=== PATIENT | female | born 1960 | race Caucasian/White ===

== ENCOUNTER 2016-10-26 14:16 | Inpatient (IN) | payer BC, OTHER ==
[~2016-10-26] VITALS: Ht 165.1 cm; Wt 99.8 kg
[2016-10-26 16:00] VITALS: BP 177/115
--- NOTE | 2016-10-26 16:00 | NUR ---
ADMISSION NOTE: 56 yo female admitted with ETOH dependence. Pt is alert and oriented X 4. Pt is hyperverbal states "I can't stop talking." Color good, skin warm and dry. Respirations even and unlabored. Vital signs: B/P 177/115 P 130 RR 20 T 98.[address]ulse O[address] 95%. Dr. Hauser notified of B/P and pulse rate. Initial CIWA 14 Pt extremely anxious. Skin intact except for large bruise L breast "from falling." Pt states she "falls and passes out a lot" when drinking. Pt denies SI/HI. Pt states has PCP but refuses to give name. Drug history: ETOH: Pt states she drinks 2 pints of tequila per day for 4 years. Last drink this AM 07/17 bottle tequila Suboxone: Pt states she was on 16 mg of Suboxone per day X 1 year "to get off heroin." States stopped 10 days ago Xanax: Pt states she takes Xanax "when I can get it." Last use "few days ago" Addendum: 10/26/16 at 1813 by NARCISO CARL RN NKA 5 feet 5 inches tall and weighs 220 pounds
[2016-10-26 16:05] LABS: *AMPHETAMINE, URINE NEGATIVE (NEGATIVE); *BARBITURATE, URINE NEGATIVE (NEGATIVE); *CANNABINOID, URINE NEGATIVE (NEGATIVE); *COCCAINE, URINE NEGATIVE (NEGATIVE); *OPIATE, URINE NEGATIVE (NEGATIVE); *PHENCYCLIDINE SCREEN,URINE NEGATIVE (NEGATIVE)
[2016-10-26] MEDS ORDERED: LORAZEPAM 1 MG TABLET PO PRN ×2 (16:15)
[2016-10-26] MEDS ORDERED: DICYCLOMINE HCL 20 MG TABLET PO PRN (16:15)
[2016-10-26] MEDS ORDERED: THIAMINE HCL 200 MG/2 ML VIAL IM ONE (16:15)
[2016-10-26] MEDS ORDERED: LOPERAMIDE HCL 2 MG CAPSULE PO PRN ×2 (16:15)
[2016-10-26] MEDS ORDERED: LORAZEPAM 2 MG/1 ML VIAL IM PRN (16:15)
[2016-10-26] MEDS ORDERED: MIRALAX 17 GM POWD.PACK PO PRN (16:15)
[2016-10-26] MEDS ORDERED: ACETAMINOPHEN 325 MG TABLET PO PRN (16:15)
[2016-10-26] MEDS ORDERED: MAGNESIUM HYDROXIDE 30 ML LIQUID UDC PO PRN (16:15)
[2016-10-26] MEDS ORDERED: ONDANSETRON 4 MG/2 ML VIAL IM PRN (16:15)
[2016-10-26] MEDS ORDERED: diphenhydrAMINE 50 MG CAPSULE PO PRN (16:15)
[2016-10-26] MEDS ORDERED: ONDANSETRON ODT 4 MG TAB.RAPDIS SL PRN (16:15)
[2016-10-26] MEDS ORDERED: MAG HYDROX/AL HYDROX/SIMETH 30 ML LIQUID UDC PO PRN (16:15)
[2016-10-26] MEDS ORDERED: ALPR1TAB7 PO (16:26)
[2016-10-26] MEDS ORDERED: ASPI-866 PO (16:26)
--- NOTE | 2016-10-26 16:30 | NUR ---
Dr Hauser in to see pt. Ativan taper started. 2mg given.
--- NOTE | 2016-10-26 16:32 | NUR ---
Clonidine 0.1mg po prn given for B/P 177/115
[2016-10-26 16:39] LABS: *URINE HCG, QUAL NEGATIVE (NEGATIVE)
[2016-10-26] MEDS: LORAZEPAM 1 MG TABLET PO SCH ×3 (16:48→23:21)
[2016-10-26] MEDS: CLONIDINE HCL 0.1 MG TABLET PO PRN ×2 (16:56→23:22)
[2016-10-26 17:01] LABS: BASOPHILS % (AUTO) 0.6 % (0.0-2.0); EOSINOPHILS % (AUTO) 0.5 % (0.0-7.0); HEMOGLOBIN 15.5 g/dL (10.9-14.3); LYMPHOCYTES # (AUTO) 1.6 K/uL (40.0-85.0); LYMPHOCYTES % (AUTO) 26.8 % (20.5-51.5); MEAN CORPUSCULAR HEMOGLOBIN 30.5 uug (24.7-32.8); MEAN CORPUSCULAR HGB CONC 34 g/dL (32.3-35.6); MEAN CORPUSCULAR VOLUME 90.4 fL (75.5-95.3); MONOCYTES # (AUTO) 0.2 K/uL (2.0-10.0); MONOCYTES % (AUTO) 2.8 % (0.0-11.0); NEUTROPHILS % (AUTO) 69.3 % (38.5-71.5); PLATELET COUNT (AUTO) 294 K/uL (179-408); RED BLOOD CELL COUNT(AUTO) 5.09 MIL/uL (3.63-4.92); WHITE BLOOD COUNT (AUTO) 5.8 K/uL (3.8-11.8)
[2016-10-26 17:14] LABS: ALBUMIN 3.8 g/dL (3.4-5.0); BILIRUBIN,TOTAL 0.3 mg/dL (0.2-1.0); CALCIUM 8.8 mg/dL (8.5-10.1); CREATININE 0.9 mg/dL (0.6-1.3); MAGNESIUM 1.9 mg/dL (1.8-2.4); POTASSIUM 3.5 mmol/L (3.5-5.1); TOTAL PROTEIN, SERUM 8.2 g/dL (6.4-8.2)
--- NOTE | 2016-10-26 17:20 | NUR ---
Repeat B/P after Clonidine prn 129/86 HR 129 EKG done.
[2016-10-26 17:22] LABS: THYROID STIMULATING HORMONE 1.382 mIU/mL (0.358-3.740)
[2016-10-26 17:24] LABS: HIV-1 p24 ANTIGEN NON REACTIVE (NONREACTIVE); HIV-1/2 ANTIBODY NON REACTIVE (NONREACTIVE)
[2016-10-26 17:27] VITALS: BP 184/110
--- NOTE | 2016-10-26 17:48 | NUR ---
Vistaril 25mg po prn and Ativan 1mg po prn for severe anxiety Addendum: 10/26/16 at 1812 by NARCISO CARL RN VESNA Ambriz
[2016-10-26] MEDS: HYDROXYZINE PAMOATE 25 MG CAPSULE PO PRN (17:50)
[2016-10-26] MEDS ORDERED: hydrALAZINE HCL 50 MG TABLET PO PRN (18:00)
--- NOTE | 2016-10-26 18:46 | NUR ---
Pt states anxiety "somewhat improved" after Vistaril and Ativan prn. CIWA 10
--- NOTE | 2016-10-26 18:47 | NUR ---
END OF SHIFT NOTE: Report given to weight shifter nurse. 56 yo female admitted with ETOH dependence. Pt is alert and oriented X 4. Pt is hyperverbal states "I can't stop talking." Color good, skin warm and dry. Respirations even and unlabored. Vital signs: B/P 177/115 P 130 RR 20 T 98.4 Pulse OX 95%. Pt started on Ativan taper. Received Vistaril 25mg po prn and Ativan 1 mg po prn @ 1745. B/P has been elevated along with heart rate. Clonidine 0.1 mg po prn given @ 1700. Pt resting in room. Safety precautions observed. Call light within reach.
--- NOTE | 2016-10-26 20:00 | NUR ---
2000 Patient received awake, alert and sitting up on her bed changing television channels . Patient states, " Oh, I thought I needed help to get back to what I was watching, but it's okay now". Patient responds to nurse's greeting and introduction with , " Hi, how are you?' Patient is oriented to person, place, day, date and her personal situation. Easily reoriented to time. Patient's lung sounds are clear bilaterally and active bowel sounds are noted X 4 abdominal Quads, per auscultation. Patient denies any pain or other specific discomfort, however she states that she is having some anxiety and then she proceeds to be hyperverbal with nurse about multiple personal matters as well as voicing to nurse multiple concerns and questions regarding her ordered medications, routine as well as prn. Calm reassurances given to patient as well as honest, simple explanations within nursing scope. Patient then gave smiles and states, " Oh, I see. Okay". Vital signs are: 98.2-113-18 131/71, O2 Sat 98%, COWS 6, CIWA 5. Bilateral lower legs sleeves applied to patient's legs and then connected to turned on, leg/venous pump, per floor protocol, after explanation given to patient regarding venous pump rationale. Patient states that she isn't eating too much from her regular diet trays, however she states that she is taking fluids ad chan with no real gastric issues so far. Fall/Seizure precautions in place. Patient was admitted today, 10/26/16, for : Alcohol, Suboxone and Xanax withdrawal and she has been started on a Ativan medication taper, which she is tolerating well so far. Patient moves all her extremities fully WNL. Patient voices no requests at this time. Bed is locked and in lowest position, bed rails are up X 2 and call light within patient's easy reach.
[2016-10-26 21:00] VITALS: BP 131/71
--- NOTE | 2016-10-26 23:21 | NUR ---
PRN MEDICATION: Prn Benadryl 50 mg p.o. given per patient's request for sleep medication.
[2016-10-26] MEDS: IBUPROFEN 400 MG TABLET PO PRN (23:22)
--- NOTE | 2016-10-26 23:22 | NUR ---
PRN MEDICATIONS: Prn Catapres 0.1 mg p.o. given per patient's request for " My blood pressure and I'm really having a lot of anxiety now" and Prn Motrin 400 mg p.o. given per patient's c/o generalized body aches and pains, 6/10 pain scale.
[2016-10-26] MEDS ORDERED: diphenhydrAMINE 50 MG CAPSULE ONE (23:25)
--- NOTE | 2016-10-27 00:22 | NUR ---
REASSESSMENT PRN MEDICATIONS: Patient is sleeping comfortably with eyes closed and respirations even, quiet and unlabored at 14, B/P 131/71.
[2016-10-27 01:00] VITALS: BP 120/66
[2016-10-27 05:00] VITALS: BP 121/84
[2016-10-27] MEDS: CLONIDINE HCL 0.1 MG TABLET PO PRN ×3 (05:15→20:48)
[2016-10-27] MEDS: HYDROXYZINE PAMOATE 25 MG CAPSULE PO PRN ×2 (05:15→22:12)
--- NOTE | 2016-10-27 05:15 | NUR ---
PRN MEDICATIONS: Prn Vistaril 25 mg p.o. given for patient's c/o anxiety and Prn Catapres 0.1 mg p.o. given per patient's request for " feeling a little shakey", CIWA 4, COWS 4.
--- NOTE | 2016-10-27 06:30 | NUR ---
0630 Patient slept a total of 7 hours and she was up to the bathroom for 3 voids and no stools. Total intake was 1,535 ml p.o. Prn medications given noted separately per floor protocol . V/SS afebrile, COWS 4, CIWA 4. Patient is very anxious and hyperverbal when awake, though she is cooperative overall. Patient is presently sleeping comfortably with eyes closed and respirations even, unlabored at 14. Patient is in stable condition at this time.
[2016-10-27 08:00] VITALS: BP 105/64
--- NOTE | 2016-10-27 08:00 | NUR ---
START OF SHIFT NOTE Received report from night nurse, 56 year old female admitted on 10/26/16 for ETOH/BENZO/OPIOID dependence. NKA/regular diet, Full code. On fall precautions. pt did not report any PMH. Pt was placed on 5 days Ativan taper. Pt has bruise on her left breast skin intact to the site. Pt received PRN Motrin/ Clonidine/Benadryl/Vistaril effective per night nurse. slept for 7 hours, Last CIWA-4, COWS-4. currently pt is sleeping in her room in stable condition. no s/s of distress noted. breathing normal no SOB noted. Safety measures in place, call light within reach. Will cont to monitor.
[2016-10-27] MEDS: MULTIVITAMINS,THERAPEUTIC TABLET PO SCH (08:50)
[2016-10-27] MEDS: THIAMINE HCL 100 MG TABLET PO SCH (08:50)
[2016-10-27] MEDS: LORAZEPAM 1 MG TABLET PO SCH ×4 (08:50→20:48)
[2016-10-27] MEDS: FOLIC ACID 1 MG TABLET PO SCH (08:50)
[2016-10-27] MEDS ORDERED: TUBERCULIN,PURIF.PROT.DERIV. 5 TU/0.1 ML TEST ID ONE (09:00)
[2016-10-27 12:00] VITALS: BP 138/85
--- NOTE | 2016-10-27 13:08 | NUR ---
PRN MED Pt c/o of anxiety, sweats, non pharmacological intervention ineffective. Administered PRN Clonidine 0.1mg Po as ordered. Will cont to monitor and reassess the pt.
--- NOTE | 2016-10-27 14:08 | NUR ---
REASSESSMENT Pt reported medication effective, anxiety subside.
[2016-10-27 16:00] VITALS: BP 110/62
--- NOTE | 2016-10-27 19:11 | NUR ---
END OF SHIFT NOTE Gave report to night nurse, 56 year old female admitted on 10/26/16 for ETOH/BENZO/OPIOID dependence. NKA/regular diet, Full code. On fall precautions. pt did not report any PMH. Pt cont on 5 days Ativan taper tolerating well. During shift pt received PRN Clonidine noted effective. vital signs remained stable. Pt did not attend any groups. Educate the pt to attend groups to learn new coping skills with good verbal understanding. last CIWA-4. Vital signs remained stable. Pt's total intake 2150ml, x2 void,with x1 BM. Safety measures in place, Call light within reach. Pt endorsed to night nurse in stable condition.
[2016-10-27 20:00] VITALS: BP 110/60
--- NOTE | 2016-10-27 20:00 | NUR ---
START OF SHIFT NOTE PATIENT IN ROOM, RESTING . PATIENT REPORTS MILD ANXIETY, SWEATING AND PAIN 8/10 ON BACK AND LEGS. NOTED IRRITABLE PATIENT VERBALIZES CONCERN REGARDING HER MEDICATION AND ANSWERS QUESTIONS WITHIN NURSING SCOPE. RECEIVED REPORT FROM DAY SHIFT NURSE. PATIENT IS A 56 YEAR OLD FEMALE, ADMITTED FOR ETOH DEPENDENCE. PATIENT IS ON 2ND DAY OF HER 5 DAY ATIVAN TAPER. PATIENT IS FULL CODE, REGULAR DIET AND NO KNOWN ALLERGY. PATIENT DENIES PAST MEDICAL HISTORY. PATIENT IS ON FALL PRECAUTION. SKIN INTACT. PATIENT WAS GIVEN PRN CLONIDINE . LAST CIWA 4. SAFETY MEASURES IN PLACE. CALL LIGHT IN REACH. WILL CONTINUE TO MONITOR.
[2016-10-27] MEDS ORDERED: METHOCARBAMOL 750 MG TABLET PO ONE (20:45)
[2016-10-27] MEDS: TRAZODONE 100 MG TABLET PO PRN (20:48)
--- NOTE | 2016-10-27 20:48 | NUR ---
PRN CATAPRES,BENTYL, DESYREL AND ROBAXIN ADMINISTRATION PATIENT C/O ANXIETY, ABDOMINAL CRAMPING, GENERALIZED BODY ACHES PA-02/20 AND REQUESTS SLEEP AID. PATIENT WAS GIVEN CATAPRES, BENTYL , DESYREL AND ROBAXIN . WILL MONITOR FOR EFFECTIVENESS. RELAXATION TECHNIQUE PROVIDED.
[2016-10-27] MEDS ORDERED: METHOCARBAMOL 750 MG TABLET ONE (20:50)
--- NOTE | 2016-10-27 21:48 | NUR ---
PRN BENTYL RE-ASSESSMENT PATIENT STATES ABDOMINAL CRAMPING SUBSIDED. BENTYL HELPFUL AND EFFECTIVE. WILL CONTINUE TO MONITOR.
--- NOTE | 2016-10-27 21:48 | NUR ---
LUCASN JANELL DAVIS PATIENT STATES MEDS IS SLIGHTLY EFFECTIVE. PATIENT STATES SHE WILL TRY TO GO TO SLEEP. REDIRECTION PROVIDED.
[2016-10-27] MEDS: IBUPROFEN 400 MG TABLET PO PRN (22:11)
--- NOTE | 2016-10-27 22:11 | NUR ---
PRN CATAPRES/ROBAXIN RE-ASSESSMENT PATIENT STILL C/O ANXIETY AND GENERALIZED BODY ACHES. 02/20 . CATAPRES AND ROBAXIN INEFFECTIVE.
--- NOTE | 2016-10-27 22:11 | NUR ---
PRN MOTRIN/VISTARIL ADMINISTRATION PATIENT STATES STILL ANXIOUS, UNABLE TO SLEEP AND WITH GENERALIZED BODY PAIN 02/20. PRN MOTRIN AND VISTARIL RE-ASSESSMENT. MOTRIN AND VISTARIL GIVEN. WILL CONTINUE TO MONITOR
--- NOTE | 2016-10-27 23:11 | NUR ---
PRN MOTRIN/VISTARIL PATIENT STATES MOTRIN SLIGHTLY EFFECTIVE. VISTARIL INEFFECTIVE. STILL UNABLE TO SLEEP. CONTINUE TO REDIRECT. RELAXATION TECHNIQUE PROVIDED. WILL CONTINUE TO MONITOR,
[2016-10-28] VITALS: BP 130/76
[2016-10-28] MEDS ORDERED: LORAZEPAM 1 MG TABLET PO ONE ×2 (00:30→10:45)
[2016-10-28] MEDS ORDERED: diphenhydrAMINE 50 MG CAPSULE PO ONE (00:30)
--- NOTE | 2016-10-28 00:30 | NUR ---
PRN ATIVAN/BENADRYL PATIENT C/O ANXIETY, NOTED RESTLESS, IRRITABLE , AGITATED AND STILL C/O UNABLE TO SLEEP. CIWA 9. VS 130/76 P-76 R-16 T-97.8. PRN ATIVAN/BENADRYL GIVEN. WILL MONITOR FOR EFFECTIVENESS
[2016-10-28] MEDS ORDERED: LORAZEPAM 1 MG TABLET ONE (00:37)
[2016-10-28] MEDS ORDERED: diphenhydrAMINE 50 MG CAPSULE ONE (00:37)
--- NOTE | 2016-10-28 01:30 | NUR ---
PRN ATIVAN /BENADRYL RE-ASSESSMENT PATIENT STATES ATIVAN IS SLIGHTLY EFFECTIVE. STILL ANXIOUS AND BENADRYL INEFFECTIVE. STILL UNABLE TO SLEEP. CONTINUE TO REDIRECT. CIWA 7.
[2016-10-28] MEDS: CLONIDINE HCL 0.1 MG TABLET PO PRN ×2 (03:57→10:05)
--- NOTE | 2016-10-28 03:57 | NUR ---
PRN CLONIDINE ADMINISTRATION PATIENT STILL C/O ANXIETY AND UNABLE TO SLEEP. RELAXATION TECHNIQUE PROVIDED. NON-PHARMACOLOGICAL INTERVENTION INEFFECTIVE. PRN CLONIDINE GIVEN. WILL MONITOR FOR EFFECTIVENESS.
[2016-10-28 04:00] VITALS: BP 118/84
--- NOTE | 2016-10-28 04:57 | NUR ---
PRN CLONIDINE RE-ASSESSMENT PATIENT STATES CLONIDINE INEFFECTIVE. PATIENT STILL CONTINUE'S TO ASK FOR MEDICATION. CONTINUE TO REDIRECT. RELAXATION TECHNIQUE PROVIDED.
--- NOTE | 2016-10-28 06:41 | NUR ---
ONE TIME BACLOFEN AND TORADOL INJECTION ADMINISTRATION DR. CELIS WAS INFORMED OF PATIENT STILL C/O PAIN ON BACK AND BOTH LEGS 02/20. PRN BACLOFEN AND TORADOL GIVEN. WILL MONITOR FOR EFFECTIVENESS.
[2016-10-28] MEDS ORDERED: KETOROLAC TROMETHAMINE 30 MG INJ ONE (06:44)
[2016-10-28] MEDS ORDERED: BACLOFEN 20 MG TABLET ONE (06:44)
[2016-10-28] MEDS ORDERED: BACLOFEN 20 MG TABLET PO ONE ×2 (06:45→10:45)
[2016-10-28] MEDS ORDERED: KETOROLAC TROMETHAMINE 30 MG INJ IM ONE (06:45)
--- NOTE | 2016-10-28 07:17 | NUR ---
MARYURI PEDROZAYREL RE-ASSESSMENT PATIENT STATES DESYREL INEFFECTIVE. PATIENT STATES SHE STILL CAN'T STAY ASLEEP . WILL CONTINUE TO MONITOR AND WILL WILL NOTIFY
--- NOTE | 2016-10-28 07:34 | NUR ---
END OF SHIFT NOTE PATIENT REPORTS ANXIETY, SWEATING , ABDOMINAL CRAMPING, UNABLE TO SLEEP AND PAIN 8/10 ON BACK/ LEGS DURING SHIFT, PATIENT VERBALIZING FEELING UNCOMFORTABLE. PATIENT VERBALIZES CONCERN REGARDING HER MEDICATION AND ANSWERS QUESTIONS WITHIN NURSING SCOPE. PATIENT WAS GIVEN BENTYL FOR ABDOMINAL CRAMPING, CATAPRES , DESYREL AND ONE TIME ROBAXIN AT 2047 THEN AT 2210 , PATIENT C/O ANXIETY AND GENERALIZED BODY ACHES , PRN MOTRIN AND VISTARIL GIVEN. DR. SHIELDS WAS CALLED AND INFORMED OF PATIENT STILL ANXIOUS AND UNABLE TO STAY ASLEEP, PREVIOUS MEDS SLIGHTLY EFFECTIVE. ONE TIME BENADRYL AND ATIVAN WAS GIVEN AT 0030. THEN AT 356, PATIENT STILL ANXIOUS AND WAS GIVEN CLONIDINE . ENDORSE TO DAY SHIFT NURSE PATIENT'S COMPLAINTS OF VARIOUS SYMPTOMS TO MD AND STATES MEDS ARE SLIGHTLY EFFECTIVE AND SOME ARE INEFFECTIVE. PATIENT STILL CONTINUES TO ASK FOR MEDICATIONS . SAFETY MEASURES IN PLACE. CALL LIGHT IN REACH. WILL CONTINUE TO MONITOR. SLEPT 4 HOURS. FLUID INTAKE 795 ML. VOIDED X 1. NO BM. LAST COWS 6 AND CIWA 5.
--- NOTE | 2016-10-28 07:41 | NUR ---
REASSESSMENT Upon reassessment pt reported medications effective which was given by night nurse. Pain level lower to 5/10, muscle spasms decreased. Will cont to monitor.
[2016-10-28 07:51] LABS: BASOPHILS % (AUTO) 0.5 % (0.0-2.0); EOSINOPHILS # (AUTO) 0.2 K/uL (0.0-0.7); EOSINOPHILS % (AUTO) 2.3 % (0.0-7.0); LYMPHOCYTES # (AUTO) 1.7 K/uL (40.0-85.0); MEAN CORPUSCULAR HGB CONC 34 g/dL (32.3-35.6); MEAN CORPUSCULAR VOLUME 91.1 fL (75.5-95.3); MONOCYTES # (AUTO) 0.4 K/uL (2.0-10.0); MONOCYTES % (AUTO) 4.8 % (0.0-11.0); NEUTROPHILS # (AUTO) 5.2 K/uL (1.8-8.9); NEUTROPHILS % (AUTO) 69.4 % (38.5-71.5); RED BLOOD CELL COUNT(AUTO) 4.18 MIL/uL (3.63-4.92)
[2016-10-28 08:00] VITALS: BP 102/64
--- NOTE | 2016-10-28 08:00 | NUR ---
START OF SHIFT NOTE Received report from night nurse, 56 year old female admitted on 10/26/16 for ETOH/BENZO/OPIOID dependence. NKA/regular diet, Full code. On fall precautions. pt did not report any PMH. Pt cont on 5 days Ativan taper. Pt has bruise on her left breast skin intact to the site. Pt received PRN's medications slightly effective per night nurse, slept for 4 hours, Last CIWA-5, COWS-6. Currently pt is resting in his room no s/s of distress noted. breathing normal no SOB noted. Safety measures in place, call light within reach. Will cont to monitor.
[2016-10-28 08:03] LABS: HEMATOCRIT 38.1 % (31.2-41.9); PLATELET COUNT (AUTO) 188 K/uL (179-408); WHITE BLOOD COUNT (AUTO) 7.5 K/uL (3.8-11.8)
[2016-10-28 08:27] LABS: ALBUMIN 2.8 g/dL (3.4-5.0); BILIRUBIN,DIRECT 0.1 mg/dL (0.0-0.2); BILIRUBIN,TOTAL 0.4 mg/dL (0.2-1.0); CALCIUM 8.7 mg/dL (8.5-10.1); CREATININE 0.7 mg/dL (0.6-1.3); MAGNESIUM 1.8 mg/dL (1.8-2.4); PHOSPHOROUS 3.8 mg/dL (2.5-4.9); POTASSIUM 4.2 mmol/L (3.5-5.1); TOTAL PROTEIN, SERUM 6.4 g/dL (6.4-8.2)
[2016-10-28] MEDS: FOLIC ACID 1 MG TABLET PO SCH (09:25)
[2016-10-28] MEDS: LORAZEPAM 1 MG TABLET PO SCH ×3 (09:25→21:34)
[2016-10-28] MEDS: ASPIRIN 81 MG TAB.CHEW PO SCH (09:25)
[2016-10-28] MEDS: MULTIVITAMINS,THERAPEUTIC TABLET PO SCH (09:25)
[2016-10-28] MEDS: THIAMINE HCL 100 MG TABLET PO SCH (09:25)
--- NOTE | 2016-10-28 10:05 | NUR ---
PRN MED Pt c/o of anxiety, sweats, non pharmacological intervention ineffective. Administered PRN Clonidine 0.1mg Po as ordered. Will cont to monitor and reassess the pt.
[2016-10-28] MEDS ORDERED: KETOROLAC TROMETHAMINE 30 MG INJ IM PRN (10:45)
--- NOTE | 2016-10-28 11:05 | NUR ---
REASSESSMENT Pt reported medication effective, anxiety subside.
--- NOTE | 2016-10-28 11:12 | NUR ---
NEW ORDER Pt is complaining of muscle spasms/ anxiety, agitation. MD ordered Baclofen 20mg one time order and Ativan 2mg one time order. Orders entered by MD. orders carried out and given. Will continue to monitor pt.
[2016-10-28 12:00] VITALS: BP 107/64
[2016-10-28] MEDS: GABAPENTIN 300 MG CAPSULE PO SCH ×2 (13:18→16:29)
[2016-10-28] MEDS: BACLOFEN 20 MG TABLET PO SCH ×2 (15:03→21:35)
[2016-10-28 16:00] VITALS: BP 115/66
--- NOTE | 2016-10-28 19:10 | NUR ---
END OF SHIFT NOTE Gave report to night nurse, 56 year old female admitted on 10/26/16 for ETOH/BENZO/OPIOID dependence. NKA/regular diet, Full code. On fall precautions. pt did not report any PMH. Pt cont on 5 days Ativan taper tolerating well. During shift pt received PRN's medications effective. Pt did not attend any groups. Educate the pt to attend groups to learn new coping skills with good verbal understanding. last CIWA-3. Vital signs remained stable. Pt did not take shower offered and pt refused. Pt's total intake 1000ml, x1 void,with x0 BM. Safety measures in place, Call light within reach. Pt endorsed to night nurse in stable condition.
--- NOTE | 2016-10-28 19:50 | NUR ---
START OF SHIFT NOTE Received report from day shift nurse. Pt is 56 y o female, admitted on for ETOH (tequila), Suboxone, Xanax (occasionally) dependence. Pt is on 5 day Ativan taper started 10/25/16. Pt in room ,asleep, awakened by verbal stimuli. Reports anxiety and back pain /, scheduled medications to be administered as ordered. RR unlabored, heart rate regular. Pt denies n/v/d, bowel sounds active x 4. Skin intact, with minimal sweating observed. No tremors noted. Pt is on fall precautions. Side rails up x 2, call light within reach, bed locked in lowest position.
[2016-10-28 20:00] VITALS: BP 100/52
[2016-10-29] VITALS: BP 106/61
--- NOTE | 2016-10-29 | NUR ---
CIWA/COWS DEFERRED COWS/CIWA assessment deferred per MD order; pt sleeping soundly, fall precautions in place, will continue to monitor Addendum: 10/29/16 at 0342 by KAILEY LI RN Amended: Links added.
[2016-10-29 04:00] VITALS: BP 106/66
--- NOTE | 2016-10-29 04:00 | NUR ---
CIWA/COWS DEFERRED COWS/CIWA assessment deferred per MD order; pt sleeping soundly, fall precautions in place, will continue to monitor Addendum: 10/29/16 at 0434 by KAILEY LI RN Amended: Links added.
[2016-10-29 04:06] LABS: HCV AB <0.1 s/co ratio (0.0-0.9); HEPATITIS B CORE AB, IgM Negative (Negative); HEPATITIS B SURFACE AG Negative (Negative)
[2016-10-29] MEDS: HYDROXYZINE PAMOATE 25 MG CAPSULE PO PRN ×2 (05:04→08:47)
--- NOTE | 2016-10-29 05:07 | NUR ---
PRN VISTARIL Pt woke up, c/o anxiety. BP 107/59, HR 75. Administered Vistaril 50 mg PO prn. Fall precautions in place, will continue to monitor
[2016-10-29 07:21] LABS: ALBUMIN 3.1 g/dL (3.4-5.0); BILIRUBIN,DIRECT 0.1 mg/dL (0.0-0.2); BILIRUBIN,TOTAL 0.5 mg/dL (0.2-1.0); CALCIUM 8.8 mg/dL (8.5-10.1); CREATININE 0.9 mg/dL (0.6-1.3); MAGNESIUM 2.2 mg/dL (1.8-2.4); PHOSPHOROUS 3.6 mg/dL (2.5-4.9); POTASSIUM 4.5 mmol/L (3.5-5.1); TOTAL PROTEIN, SERUM 7.1 g/dL (6.4-8.2)
--- NOTE | 2016-10-29 07:21 | NUR ---
Start of Shift Notes: Received patient in the room. Alert and oriented x 4. Verbally responsive. Able to make her needs known. Respirations even and unlabored. No SOB noted. Skin warm and dry to touch. Abdomen soft and non-distended with (+) BS in all 4 quadrants. No complains of N/V/D or constipation noted. No complains of abdominal discomfort. Voids independently. Denies any complains of bladder pain. Ambulatory ad chan with steady gait. Patient is a 56 year old female admitted for ETOH/Subaxone and BZO dependence who was placed on a 5-day Ativan taper as ordered. No adverse reactions noted. Denies any past medical hx. FULL CODE. NKA. Regular diet. On fall and seizure precautions. Educated patient on her current plan of care for the day and her medication regimen. Encouraged oral fluid intake and encouraged group participation to learn new skills to prevent relapse. Will continue to monitor closely. Safety precautions in place.
--- NOTE | 2016-10-29 07:25 | NUR ---
END OF SHIFT NOTE Pt is 56 y o female, admitted on 10/26/16 for ETOH (tequila), Suboxone, Xanax (occasionally) dependence. Pt is on day 3 of 5 day Ativan taper started 10/27/16. Pt was cooperative and compliant throughout the shift. P slept for 9 hrs, woke up at 0500 d/t anxiety, was administered prn Vistaril 50 mg PO as ordered. Pt verbalized relief from anxiety at 0600. Last CIWA 3, COWS 3 at 1999. VSS. Pt on fall precautions. Report endorsed to day shift nurse.
[2016-10-29 08:00] VITALS: BP 112/67
[2016-10-29] MEDS: ASPIRIN 81 MG TAB.CHEW PO SCH (08:47)
[2016-10-29] MEDS: FOLIC ACID 1 MG TABLET PO SCH (08:47)
[2016-10-29] MEDS: MULTIVITAMINS,THERAPEUTIC TABLET PO SCH (08:47)
[2016-10-29] MEDS: BACLOFEN 20 MG TABLET PO SCH ×3 (08:47→20:59)
[2016-10-29] MEDS: LORAZEPAM 1 MG TABLET PO SCH ×4 (08:47→21:00)
[2016-10-29] MEDS: CLONIDINE HCL 0.1 MG TABLET PO PRN (08:48)
[2016-10-29] MEDS: GABAPENTIN 300 MG CAPSULE PO SCH ×4 (08:48→20:59)
[2016-10-29] MEDS: THIAMINE HCL 100 MG TABLET PO SCH (08:48)
--- NOTE | 2016-10-29 08:50 | NUR ---
Clonidine 0.1mg/Vistaril 50 mg/Ibuprofen 400mg: Patient noted with complain with chills, hot flashes, sweats, increased anxiety as well as headache 5/10 with muscle aches and pains. Noted patient with increased agitation and becoming disrespectful with staff, being overly demanding. Patient was redirected and approached in a calm and professional manner. Medicated patient with the above meds as ordered. Will monitor for effectiveness.
--- NOTE | 2016-10-29 09:50 | NUR ---
Re-assessment: Per patient, PRN Clonidine, Vistaril and Motrin were effective in reducing chills, hot flashes, anxiety and muscle aches and pains and headache. PL 2/10.
--- NOTE | 2016-10-29 11:18 | NUR ---
New orders: New orders received from Dr. Hauser for patient to be started on a modified 3-day Subutex taper starting today, increase Gabapentin to 600 mg to QID and Clonidine as scheduled. Orders noted and carried out. Patient education provided. Verbalized understanding. Requires reinforcement and redirection.
[2016-10-29] MEDS ORDERED: CLONIDINE HCL 0.1 MG TABLET PO PRN (11:45)
[2016-10-29 12:00] VITALS: BP 117/79
[2016-10-29] MEDS: BUPRENORPHINE HCL 2 MG TAB.SUBL SL SCH ×3 (12:11→21:01)
[2016-10-29] MEDS: CLONIDINE HCL 0.1 MG TABLET PO SCH ×2 (15:49→21:00)
[2016-10-29 16:00] VITALS: BP 117/73
--- NOTE | 2016-10-29 18:41 | NUR ---
Psych MD Visit: Patient was seen and examined by Dr. Mckinley and made started patient on Seroquel and Depakote. Patient education provided. Verbalized good understanding.
--- NOTE | 2016-10-29 19:09 | NUR ---
End of Shift Notes: Patient is a 56 year old female admitted for ETOH dependence who was placed on oa 5-day Ativan taper as ordered that was started on 10/25/2016. 3-day Subutex ordered and started today at 1300. No adverse reactions noted. Prior to admission, patient was using 2 pints of Tequila, 16 mg of Subaxone. VS monitored closely q 4 hours. No significant abnormalities noted. Withdrawal symptoms were closely monitored. Patient presented with increased anxiety, agitation, restless legs, muscle aches and pains, chills, hot flashes and sweats. Initial COWS 9, CIWA 11. Medicated patient with Clonidine, VIstaril and Motrin at 0850 with help after 1 hour. Last COWS 5 / CIWA 4. Patient appears to demand for more and more medication despite educating patient on the medication regimen. Also noted with episodes of being disrespectful and inappropriate to staff when she does not get what she demands. Multiple changes were made to the patients medication regimen by MD Hauser such as Gabapentin, Clonidine and started on 3-day Subutex taper. Requires constant reassurance and redirection. Encouraged to participate in group but non-compliant. Oral fluids encouraged as ordered. All needs met and attended. On fall and seizure precautions. Safety precautions in place. Will continue to monitor closely.
--- NOTE | 2016-10-29 19:55 | NUR ---
START OF SHIFT NOTE Received report from day shift nurse. Pt is 56 y o female, admitted on 10/26/16 for ETOH (tequila), Suboxone, Xanax (occasionally) dependence. Pt is on 5 day Ativan taper started 10/27/16. Pt was placed on 3 day Subutex taper on 10/29/16. Pt in room, asleep, awakened by verbal stimuli. Reports anxiety, sweats, and generalized aches 10/21. No tremors noted. Lung sounds clear, RR unlabored, heart rate regular. Pt denies n/v/d, bowel sounds active x 4. Pt is on fall precautions. VTE risk 2, SCD boots on. Side rails up x 2, call light within reach, bed locked in lowest position. Will continue with plan of care
[2016-10-29 20:00] VITALS: BP 123/78
[2016-10-29] MEDS: DIVALPROEX 250 MG TABLET.DR PO SCH (21:00)
[2016-10-30] VITALS: BP 88/53
--- NOTE | 2016-10-30 | NUR ---
CIWA/COWS DEFERRED COWS/CIWA assessment deferred per MD order; pt sleeping soundly, fall precautions in place, will continue to monitor
[2016-10-30 04:00] VITALS: BP 90/45
--- NOTE | 2016-10-30 04:00 | NUR ---
CIWA/COWS DEFERRED COWS/CIWA assessment deferred per MD order; pt sleeping soundly, fall precautions in place, will continue to monitor Addendum: 10/30/16 at 0632 by KAILEY LI RN Amended: Links added.
--- NOTE | 2016-10-30 07:12 | NUR ---
END OF SHIFT NOTE Pt is 56 y o female, admitted on 10/26/16 for ETOH (tequila), Suboxone, Xanax (occasionally) dependence. Pt is on day 4 of 5 day Ativan taper started 10/27/16, and on day 2 of 3 day Subutex taper started 10/29/16. PMH of bipolar. Pt demonstrated cooperative behavior throughout the shift, was compliant. Last COWS 4, CIWA 4 at 2000, VSS. P slept for 9 hrs. Pt received all scheduled medications, no prns were given. Pt on fall precautions. Report endorsed to day shift nurse.
--- NOTE | 2016-10-30 07:30 | NUR ---
START OF SHIFT NOTE Received report from night nurse, 56 year old female admitted on 10/26/16 for ETOH/BENZO/OPIOID dependence. NKA/regular diet, Full code. On fall precautions. pt did not report any PMH. Pt cont on 5 days Ativan taper and 3 days Subutex taper started 10/29/16. Pt has bruise on her left breast skin intact to the site. Pt received PRN's medications slightly effective per night nurse, slept for 9 hours, Last CIWA-4, COWS-4. pt received pt alert awake oriented x4, in her room no s/s of distress noted. Breathing normal no SOB noted. Educate the pt regarding plan of the day and medication regimen. Safety measures in place, call light within reach. Will cont with plan of care.
[2016-10-30 08:00] VITALS: BP 108/66
[2016-10-30] MEDS: ASPIRIN 81 MG TAB.CHEW PO SCH (08:57)
[2016-10-30] MEDS: MULTIVITAMINS,THERAPEUTIC TABLET PO SCH (08:57)
[2016-10-30] MEDS: THIAMINE HCL 100 MG TABLET PO SCH (08:57)
[2016-10-30] MEDS: BUPRENORPHINE HCL 2 MG TAB.SUBL SL SCH ×3 (08:57→21:24)
[2016-10-30] MEDS: BACLOFEN 20 MG TABLET PO SCH ×3 (08:57→21:24)
[2016-10-30] MEDS: CLONIDINE HCL 0.1 MG TABLET PO SCH ×3 (08:57→21:23)
[2016-10-30] MEDS: FOLIC ACID 1 MG TABLET PO SCH (08:57)
[2016-10-30] MEDS: LORAZEPAM 1 MG TABLET PO SCH ×3 (08:57→21:24)
[2016-10-30] MEDS: GABAPENTIN 300 MG CAPSULE PO SCH ×4 (08:57→21:24)
[2016-10-30] MEDS: DIVALPROEX 250 MG TABLET.DR PO SCH ×2 (09:02→21:24)
[2016-10-30 12:00] VITALS: BP 112/70
[2016-10-30 16:00] VITALS: BP 134/91
--- NOTE | 2016-10-30 19:21 | NUR ---
END OF SHIFT NOTE Gave report to night nurse, 56 year old female admitted on 10/26/16 for ETOH/BENZO/OPIOID dependence. NKA/regular diet, Full code. On fall precautions. Pt did not report any PMH. Pt cont on 5 days Ativan taper/3days Subutex taper tolerating well. Pt attended groups and activities. Last CIWA-3, COWS-3. Vital signs remained stable. Pt's total intake 1123ml, x3 void,with x0 BM. Safety measures in place, Call light within reach. Pt endorsed to night nurse in stable condition.
[2016-10-30 20:00] VITALS: BP 144/85
--- NOTE | 2016-10-30 20:00 | NUR ---
Start of Shift Note: Report received from day shift nurse. Pt is a 56 yo female admitted on 10/26/16 for medically-supervised withdrawal from ETOH, Suboxone, and benzodiazepines. Pt reports drinking 2 pints tequila daily for 4 years, taking 16mg Suboxone daily for one year, and an unknown amount of Xanax for 1 year. Pt is on the fourth day of a 5-day Ativan taper and on the second day of a modified 3-day Subutex taper. Last day shift COWS=3, CIWA=3. Pt is on a regular diet. Pt reports NKDA/NKFA. Pt denies past med hx. Pt received in room, noted to be hyperverbal with tangential speech. Pt noted with tremor. Pt reports conflicts with staff members and c/o rules regarding group attendance for cigarette distribution. Pt redirected multiple times to stay on topic, will continue to educate. All safety precautions are in place. Will continue to monitor.
[2016-10-30] MEDS: TRAZODONE 100 MG TABLET PO PRN (21:24)
--- NOTE | 2016-10-30 21:31 | NUR ---
PRN Trazodone: Pt complains of inability to sleep. Non-pharmacological measures not effective. Administered PRN Trazodone as ordered. Will continue to monitor.
--- NOTE | 2016-10-30 22:35 | NUR ---
PRN Reassessment: Pt is in bed with eyes closed. Respirations are even and unlabored. No s/s of acute distress noted. PRN Trazodone effective AEB pt's ability to rest. Will continue to monitor.
[2016-10-31] VITALS: BP 128/78
--- NOTE | 2016-10-31 | NUR ---
COWS/CIWA Deferred: COWS/CIWA assessments are deferred for sleep. VS: 98.2, 84, 16, 96%, 128/78. All safety precautions are in place. Will continue to monitor. Addendum: 10/31/16 at 0321 by SUSANNA DOBBS RN Amended: Links added.
[2016-10-31 04:00] VITALS: BP 131/82
--- NOTE | 2016-10-31 04:00 | NUR ---
COWS/CIWA Deferred: COWS and CIWA deferred while pt is sleeping. VS WNL. All safety precautions are in place. Will continue to monitor. Addendum: 10/31/16 at 0639 by SUSANNA DOBBS RN Amended: Links added.
--- NOTE | 2016-10-31 05:07 | NUR ---
Behavioral Note: Pt reports sleeping in an awkward position, and reports waking up with severe muscle cramps. Pt refuses Motrin at this time. Pt is hyperverbal, fidgety, labile and crying upon assessment, states that she does not like taking psychiatric medications and has many concerns regarding her medication regime and medication side effects. Pt requires frequent redirection to stay on topic. Pt noted to be fearful, agitated and speaking in loud tones. Pt reports not trusting psychiatrists and does not like taking psychiatric medications. Provided pt teaching on weighing the risks and benefits of the new Depakote and Seroquel, but pt continues to verbalize her suspicions and fears. Pt states, "I can just deal with the agitation. I did it before." Educated pt on the effect of emotional imbalance on relapse and sobriety. Pt will require ongoing education on the topic.
[2016-10-31 07:08] LABS: *BENZODIAZEPINES Negative (Cutoff=300)
--- NOTE | 2016-10-31 07:13 | NUR ---
End of Shift Note: Pt is a 56 yo female admitted to [facility] on 10/26/16 for medically-supervised withdrawal from ETOH, Suboxone, and benzodiazepines. Pt denies past med hx. Pt is on a regular diet. Pt reports NKDA/NKFA. Pt reports drinking 2 pints tequila daily for 4 years, taking 16mg Suboxone daily for one year, and an unknown amount of Xanax for 1 year. Pt is to start the fifth day of a 5-day Ativan taper and the third day of a modified 3-day Subutex taper. Scheduled medication regime effectively managed s/s of withdrawal this shift. PRN Trazodone was given for inability to sleep. Pt required repeated redirection and support for extended periods of time d/t episodes of anxiety and agitation. Last COWS=11, CIWA=7 at 20:00. V/S stable throughout shift, with one HR elevated at 107. Pt reporting increase in myoclonus, endorsed to day shift nurse for MD medication adjustment. Total fluid intake this shift: 850 ml; output: urine x 2 and BM x 0. Pt currently in bed and slept 7 hours this shift. Pt endorsed to day shift nurse.
--- NOTE | 2016-10-31 07:51 | NUR ---
START OF SHIFT NOTE: Received pt this morning in her room. Pt continues on 5 day Ativan/3 day Subutex taper. Pt given PRN Trazodone per shift supervisor rn and slept 7 hours. She says her body is hurting because she woke up in a weird position this morning and it really worried her. Patient reports she is feeling restless, anxious, has leg cramps and body aches. She states she wants to speak to the psychiatrist today regarding some of her medications. All safety measures in place. Will continue to monitor and provide safe and supportive environment.
[2016-10-31 08:00] VITALS: BP 154/76
[2016-10-31] MEDS: FOLIC ACID 1 MG TABLET PO SCH (08:44)
[2016-10-31] MEDS: MULTIVITAMINS,THERAPEUTIC TABLET PO SCH (08:44)
[2016-10-31] MEDS: CLONIDINE HCL 0.1 MG TABLET PO SCH ×3 (08:44→20:54)
[2016-10-31] MEDS: GABAPENTIN 300 MG CAPSULE PO SCH ×3 (08:44→20:55)
[2016-10-31] MEDS: BACLOFEN 10 MG TABLET PO SCH ×3 (08:44→20:55)
[2016-10-31] MEDS: ASPIRIN 81 MG TAB.CHEW PO SCH (08:44)
[2016-10-31] MEDS: THIAMINE HCL 100 MG TABLET PO SCH (08:44)
[2016-10-31] MEDS: DIVALPROEX 250 MG TABLET.DR PO SCH ×2 (08:44→20:55)
[2016-10-31] MEDS ORDERED: BACLOFEN 20 MG TABLET PO SCH (09:00)
[2016-10-31] MEDS ORDERED: LORAZEPAM 1 MG TABLET PO SCH ×2 (09:00→18:00)
[2016-10-31] MEDS ORDERED: BUPRENORPHINE HCL 2 MG TAB.SUBL SL SCH ×2 (09:00→18:00)
[2016-10-31] MEDS: QUETIAPINE FUMARATE 25 MG TABLET PO PRN ×2 (11:44→20:56)
--- NOTE | 2016-10-31 11:46 | NUR ---
PRN MEDS PRN Seroquel given per Dr. Flores order. Pt is labile and agitated. Will reassess
[2016-10-31 12:00] VITALS: BP 151/80
--- NOTE | 2016-10-31 12:45 | NUR ---
PRN REASSESSMENT Pt is less agitated.Pt laying in bed watching tv with bed locked and in lowest position call bernardo within reach. Will continue to monitor
[2016-10-31 16:00] VITALS: BP 122/84
--- NOTE | 2016-10-31 18:41 | NUR ---
END OF SHIFT Pt continues on 5 day Ativan 3 day Subutex taper. Pt tolerating taper well. Pt is scheduled for discharge tomorrow. Pt given PRN Seroquel for agitation and labile mood with effectiveness. Pt attended groups today. Last COWS 4 CIWA 7. Pt presents restless and anxious. Pt is compliant with medications and tx plan. Pt is hyper-focused on medications. All needs attended to promptly. Bed locked and in lowest position and call bernardo within reach. Will pass report to oncoming nurse
--- NOTE | 2016-10-31 19:15 | NUR ---
START OF SHIFT Received 56 year old female patient admitted on 10/26/16 for Xanax, ETOH, and Suboxone dependency. Pt is full code with NKA. She denies any PMHx. She reports using ETOH 2 pints of tequila daily for 4 years. Last dose 1/4 pint on 10/26/16. Xanax of unknown dose. Last taken " few days ago." and Suboxone 16 mg daily for 1 year. Last dose was 10 days ago. Pt was placed on modified 3 day Subutex taper started on 10/29/16 and tolerating well. Per endorsement, pt received PRN Seroquel. Pt is scheduled to be DC tomorrow. Pt is alert and oriented x4, breathing is even and unlabored, safety measures in place. Will continue to monitor.
[2016-10-31] MEDS ORDERED: DICY20TA28 PO (19:32)
[2016-10-31] MEDS ORDERED: QUET25TA PO (19:32)
[2016-10-31] MEDS ORDERED: HYDR-3895 PO (19:32)
[2016-10-31] MEDS ORDERED: Ibuprofen PO (19:32)
[2016-10-31] MEDS ORDERED: CLON0.1T14 PO (19:32)
[2016-10-31] MEDS ORDERED: DIVA250T4 PO (19:32)
[2016-10-31] MEDS ORDERED: Baclofen PO (19:32)
[2016-10-31] MEDS ORDERED: Trazodone Hcl PO (19:32)
[2016-10-31] MEDS ORDERED: Gabapentin PO (19:32)
[2016-10-31 20:00] VITALS: BP 128/74
--- NOTE | 2016-10-31 20:56 | NUR ---
PRN SEROQUEL Pt observed to be agitated/anxious. Pt is restless in room, unable to sit still. PRN Seroquel administered as ordered. Breathing even and unlabore, safety measures in place. Will continue to monitor effectiveness.
[2016-10-31 21:34] LABS: *AMPHETAMINE, URINE NEGATIVE (NEGATIVE); *BARBITURATE, URINE NEGATIVE (NEGATIVE); *CANNABINOID, URINE NEGATIVE (NEGATIVE); *COCCAINE, URINE NEGATIVE (NEGATIVE); *OPIATE, URINE NEGATIVE (NEGATIVE); *PHENCYCLIDINE SCREEN,URINE NEGATIVE (NEGATIVE)
--- NOTE | 2016-10-31 21:56 | NUR ---
PRN SEROQUEL REASSESSMENT PRN medication effective. Pt observed to be more calm, sitting comfortably in bed. Pt states " I feel a lot better" Breathing even and unlabored, respirations 16. Safety measures in place. Will continue to monitor.
[2016-11-01] VITALS: BP 121/88
[2016-11-01] MEDS: TRAZODONE 100 MG TABLET PO PRN (00:13)
--- NOTE | 2016-11-01 00:13 | NUR ---
PRN TRAZODONE Pt complains of inability to fall asleep. PRN Trazodone administered as ordered. Breathing even and unlabored, safety measures in place. Will continue to monitor effectiveness.
--- NOTE | 2016-11-01 01:13 | NUR ---
PRN TRAZODONE REASSESSMENT PRN Trazodone effective. Pt lying in bed with eyes closed noted with eyes closed and is asleep. Respirations 16, breathing is even and unlabored. Pt safe with bed locked in lowest position, side rails up x2 and call light within reach. Will continue to monitor.
[2016-11-01 04:00] VITALS: BP 103/64
--- NOTE | 2016-11-01 04:00 | NUR ---
COWS/CIWA DEFERRED COWS/CIWA deferred d/t order is Q4H while awake. Pt lying in bed with eyes closed noted to be asleep. Respirations 16, breathing is even and unlabored. Pt safe with bed locked in lowest position, side rails up x2 and call light within reach. Will continue to monitor.
[2016-11-01] MEDS: QUETIAPINE FUMARATE 25 MG TABLET PO PRN ×3 (06:47→20:53)
--- NOTE | 2016-11-01 06:49 | NUR ---
PRN SEROQUEL Pt observed to be agitated. Pt awake in room and is restless. PRN Seroquel administered as ordered. Breathing even and unlabored, safety measures in place. Will endorse to monitor effectiveness.
--- NOTE | 2016-11-01 07:07 | NUR ---
END OF SHIFT Pt is a 56 year old female patient admitted on 10/26/16 for Xanax, ETOH, and Suboxone dependency. Pt is full code with NKA. She denies any PMHx. At 6 pt received PRN Seroquel d/t agitation/anxiety. And at 12 pt received PRN Trazodone d/t inability to sleep. Both PRN medications were effective. At 646 pt received PRN Seroquel d/t agitation. Endorsed to oncoming nurse to reassess. She is scheduled to be DC today to [facility]. She slept a total of 5 hrs, Intake: 350 mL, Void: 1 BM: 0. Pt is alert and oriented x4, breathing is even and unlabored, safety measures in place. Endorsed to oncoming nurse.
--- NOTE | 2016-11-01 07:22 | NUR ---
Start of Shift Notes: Received patient in her room. Alert and verbally responsive. Oriented x 4. Respirations even and unlabored. No SOB noted. Skin warm and dry to touch. Abdomen soft and non-distended with (+) BS in all 4 quadrants. No complains of N/V/D or constipation noted. No complains of abdominal discomfort noted. Bladder non-distended. No complains of dysuria noted. Voids independently. Ambulatory ad chan with steady gait. Patient is a 56 year old female admitted for opiate/BZO and ETOH dependence who was placed on a 3-day Subutex and 5-day Ativan taper that has been completed. Patient will be discharging today. UDS in and resulted. Educated patient on her medication regimen and the Patient verbalized understanding. All needs met and attended. Will continue to monitor closely.
--- NOTE | 2016-11-01 07:49 | NUR ---
Re-assessment: Seroquel Per patient, PRN Seroquel has been effective in reducing agitation and restlessness.
[2016-11-01 08:00] VITALS: BP 96/67
[2016-11-01] MEDS: DIVALPROEX 250 MG TABLET.DR PO SCH ×2 (08:10→20:52)
[2016-11-01] MEDS: BACLOFEN 10 MG TABLET PO SCH ×3 (08:10→20:52)
[2016-11-01] MEDS: FOLIC ACID 1 MG TABLET PO SCH (08:10)
[2016-11-01] MEDS: THIAMINE HCL 100 MG TABLET PO SCH (08:10)
[2016-11-01] MEDS: ASPIRIN 81 MG TAB.CHEW PO SCH (08:10)
[2016-11-01] MEDS: GABAPENTIN 300 MG CAPSULE PO SCH ×3 (08:10→20:53)
[2016-11-01] MEDS: CLONIDINE HCL 0.1 MG TABLET PO SCH ×3 (08:11→20:52)
[2016-11-01] MEDS: MULTIVITAMINS,THERAPEUTIC TABLET PO SCH (08:11)
[2016-11-01] MEDS ORDERED: BUPRENORPHINE HCL 2 MG TAB.SUBL SL SCH (09:00)
[2016-11-01 12:00] VITALS: BP 112/61
--- NOTE | 2016-11-01 12:48 | NUR ---
Discharge location clarification: Discharging location is not ready for the patient at this time per client director. DC date was moved to tomorrow. made aware.
--- NOTE | 2016-11-01 14:41 | NUR ---
Seroquel 25 mg PO given: Patient noted with increase agitation and anxiety due to discharge situation. Encouraged patient verbalized her feelings and concerns, redirected with non-pharmacological intervention but did not help. Offered Vistaril but refused, Seroquel 25 mg PO given as ordered. Will monitor for effectiveness.
--- NOTE | 2016-11-01 15:41 | NUR ---
Re-assessment: Per patient, she feels calm at this time and rested. PRN Seroquel was effective in reducing agitation. Will continue to monitor closely.
[2016-11-01 16:00] VITALS: BP 94/57
--- NOTE | 2016-11-01 18:42 | NUR ---
End of Shift Notes: Patient is a 56 year old female admitted for ETOH dependence who was placed on oa 5-day Ativan taper as ordered that was started on 10/25/2016 and 3 day Subutex and completed taper. Prior to admission, patient was using 2 pints of Tequila, 16 mg of Subaxone. VS monitored closely q 4 hours. No significant abnormalities noted. Withdrawal symptoms were closely monitored. Patient presented with anxiety and muscle aches. Initial COWS 2/CIWA 1. Last COWS 2/CIWA 1. Patient was medicated with Seroquel 25 mg PO at 1441 due to agitation with help after 1 hour. Discharge pending for tomorrow. Safety precautions in place. All need smet and attended. Will cotnionue to monitor closely.
--- NOTE | 2016-11-01 19:15 | NUR ---
Start of Shift Patient Received. Patient is in her room, awake, alert and verbally responsive. Breathing even and non labored. No signs of pain or discomfort noted. Patient is a 56 year old female, admitted on 10/26/16 for ETOH and Suboxone Dependence, under the care of Dr. Hauser. Patient Received a modified 3 day Subutex taper and 5 day Ativan taper. Patient has completed tapers and is set for discharge tomorrow 11/02/16 to [facility]. Per endorsement, patient was given PRN Seroquel for increased agitation and medication noted to be effective. All needs attended to promptly. Will continue plan of care as ordered.
[2016-11-01 20:14] VITALS: BP 110/59
--- NOTE | 2016-11-01 21:00 | NUR ---
PRN Medication Administration Patient noted with increased anxiety and agitation. PRN Seroquel administered with routine medications. Will continue to monitor for effectiveness.
--- NOTE | 2016-11-01 22:00 | NUR ---
PRN Medication Reassessment Patient noted in bed, awake, alert and verbally responsive. Patient is able to verbalize "my anxiety is much better now." PRN Seroquel noted to be effective. Will continue to monitor.
[2016-11-02 00:05] VITALS: BP 96/63
[2016-11-02 04:25] VITALS: BP 94/62
--- NOTE | 2016-11-02 07:07 | NUR ---
End of Shift Patient is in bed sleeping. Breathing even and non labored. No signs of pain or discomfort noted. Patient is a 56 year old female, admitted on 10/26/16 for ETOH and Suboxone Dependence, under the care of Dr. Hauser. Patient Received a modified 3 day Subutex taper and 5 day Ativan taper. Patient has completed tapers and is set for discharge today 11/02/16 to [facility]. Patient was given PRN Seroquel for increased agitation with routine medications and PRN noted to be effective. All needs attended to promptly. Will endorse to continue plan of care as ordered.
[2016-11-02 08:00] VITALS: BP 99/67
[2016-11-02] MEDS: MULTIVITAMINS,THERAPEUTIC TABLET PO SCH (08:00)
[2016-11-02] MEDS: DIVALPROEX 250 MG TABLET.DR PO SCH (08:00)
[2016-11-02] MEDS: ASPIRIN 81 MG TAB.CHEW PO SCH (08:00)
[2016-11-02] MEDS: CLONIDINE HCL 0.1 MG TABLET PO SCH (08:00)
[2016-11-02] MEDS: FOLIC ACID 1 MG TABLET PO SCH (08:00)
[2016-11-02] MEDS: BACLOFEN 10 MG TABLET PO SCH (08:00)
[2016-11-02] MEDS: THIAMINE HCL 100 MG TABLET PO SCH (08:00)
[2016-11-02] MEDS: GABAPENTIN 300 MG CAPSULE PO SCH (08:00)
--- NOTE | 2016-11-02 08:00 | NUR ---
Discharge Instructions: Patient education provided regarding patient's discharge instructions. Explained all prescription medications from Dr. Hauser and Dr. Mckinley. Patient verbalized good understanding of all discharge teachings. All necessary paperwork were placed in a small duffel bag including her discharge packet, UDS, TB test and prescription. [employer] [employer] cabinet checked for personal belongings. Patient's cassette in medroom also checked. COWS 1, CIWA 1 due to anxiety. All due meds at 0900 were given. VS stable. All needs met and attended. Patient verbalized good understanding of all teachings. Awaiting for [employer] to slat pickler the patient to be transported to [facility].
--- NOTE | 2016-11-02 08:50 | NUR ---
Discharged: Patient left the unit at this time in stable condition. No s/s of withdrawal noted. Escorted off the unit by female [facility]. All clothings, medications and valuables were returned to the patient. Patient was picked up by [employer] at this time to be transported to [facility].
== END 2016-11-02 08:50 | disposition other institution (70) | DRG 895 ==
LOC: SRC 15:15
PROVIDERS: ADMIT Internal Medicine; ATTEND Internal Medicine
PROC: HZ2ZZZZ Detoxification Services for Substance Abuse Treatment (ICD-10-PCS; principal; 2016-10-26)
PROC: HZ31ZZZ Individual Counseling for Substance Abuse Treatment, Behavioral (ICD-10-PCS; 2016-10-29)
PROC: HZ41ZZZ Group Counseling for Substance Abuse Treatment, Behavioral (ICD-10-PCS; 2016-10-30)
DX: F10.230 Alcohol dependence with withdrawal, uncomplicated (principal); K70.10 Alcoholic hepatitis without ascites; F13.230 Sedative, hypnotic or anxiolytic dependence with withdrawal, uncomplicated; Y90.9 Presence of alcohol in blood, level not specified; F11.23 Opioid dependence with withdrawal; E66.9 Obesity, unspecified; Z68.36 Body mass index [BMI] 36.0-36.9, adult; E78.5 Hyperlipidemia, unspecified; E86.0 Dehydration; F17.210 Nicotine dependence, cigarettes, uncomplicated; Z82.49 Family history of ischemic heart disease and other diseases of the circulatory system; Z81.1 Family history of alcohol abuse and dependence; G47.00 Insomnia, unspecified; M19.90 Unspecified osteoarthritis, unspecified site; F41.9 Anxiety disorder, unspecified; F32.9 Major depressive disorder, single episode, unspecified; R73.9 Hyperglycemia, unspecified; I15.9 Secondary hypertension, unspecified; Z96.641 Presence of right artificial hip joint
CPT/HCPCS: 36415; 70030-TC; 80307; 80346; 83690; 83735; 84100; 84443; 84703; 85025; 86580; 86592; 86705; 86803; 87340; 87806; 93005; A4663; G6040-TC; J1885; J3411; J3490; Q0163